=== PATIENT | male | born 1990 | race Two or more races ===

== ENCOUNTER 2022-03-16 12:11 | Emergency (ER) | payer SELFPAY ==
[2022-03-16] MEDS ORDERED: Sodium Chloride 0.9% 10 ML Syringe FLUSH PRN (12:32)
[2022-03-16] MEDS ORDERED: Albuterol/Ipratropium 3.0-0.5 MG/3 ML Neb Soln NEB ONE (12:33)
[2022-03-16] MEDS ORDERED: Albuterol/Ipratropium 3.0-0.5 MG/3 ML Neb Soln ONE (12:36)
[2022-03-16 13:19] LABS: ANION GAP 9.3 meq/L (7-15)
[2022-03-16 13:27] LABS: CORONAVIRUS COVID-19 NAA NEGATIVE (NEGATIVE); RESPIRATORY SYNCYTIAL VIR NAA NEGATIVE (NEGATIVE)
== END 2022-03-16 15:37 | disposition home or self-care (01) ==
LOC: LL.ED 12:11
DX: R06.02 Shortness of breath (principal); J45.909 Unspecified asthma, uncomplicated; Z20.822 Contact with and (suspected) exposure to COVID-19
CPT/HCPCS: 0241U; 36415; 71046; 80053; 84484; 85025; 93005; 94640; 99285; J7620-GY